=== PATIENT | male | born 1995 | race Caucasian/White ===

== ENCOUNTER 2019-04-06 09:16 | Emergency (ER) | payer BC ==
[~2019-04-06] VITALS: Ht 198.1 cm; Wt 105.0 kg
--- NOTE | 2019-04-06 09:34 | NUR ---
23 Y/O MALE BIB AMBULANCE WITH C/O ETOH. PER REPORT PT HAS BEEN ON A DRINKING BINGE FOR 6 DAYS. GILFRIEND AND PT WANT TO GET INTO A REHAB, BUT ALL REHABS TELL HIM HE NEEDS TO COME TO ER FIRST FOR MED CLEARNACE. PER REPORT LAST DRINK WAS THIS MORNING AND WAS VODKA. PT WAS AT [facility] A FEW DAYS AGO FOR SAME SITUATION, IVF AND VALIUM WAS GIVEN. NO RX WAS SENT HOME WITH PT. PER PT "I HAVEN'T EATEN IN 5 DAYS. I LIVE WITH MY GIRLFRIEND." PIV ESTABLISHED PRIOR TO ARRIVAL. PT CHANGED INTO GOWN. PLACED ON CONT PULSE OX,NIBP. PT DOESN'T WANT CONTRACT [place] AT THIS TIME.
--- NOTE | 2019-04-06 09:51 | NUR ---
SPOKE WITH DAISY AT [facility] REGARDING NEEDS IN ORDER TO MEDICALLY CLEAR PT. SHE STATED WHEN SHE SPOKE TO THE NURSE IT WAS OK TO SEND HIM OVER FOR AN ASSESSMENT. VSS WITH PT. NO OBVIOUS TREMORS, N/V. GIRLFRIEND BEDSIDE AND MADE AWARE OF POC.
[2019-04-06] MEDS ORDERED: ONDANSETRON 2MG/ML, 2ML ONE (09:54)
[2019-04-06] MEDS ORDERED: CHLORDIAZEPOXIDE 25 MG CAPSULE ONE (09:54)
--- NOTE | 2019-04-06 09:55 | NUR ---
RELAYED MESSAGE FROM SPEAKING TO [facility] TO DR. LEUNG./
[2019-04-06 09:57] VITALS: BP 122/77
[2019-04-06] MEDS ORDERED: ONDANSETRON ODT 4 MG PO ONE (10:00)
[2019-04-06] MEDS ORDERED: CHLORDIAZEPOXIDE 25 MG CAPSULE PO ONE (10:00)
[2019-04-06] MEDS ORDERED: ONDANSETRON ODT 4 MG ONE (10:05)
--- NOTE | 2019-04-06 11:23 | NUR ---
PT ABLE TO STAND AND TRANSFER WITH STEADY GAIT TO WHEELCHAIR. PER GIRLFRIEND "I'LL TAKE HIM TO [facility]." PT AND GF VERBALIZE UNDERSTANDING REGARDING POC. NADN. Patient/Caregiver given discharge instructions and they have confirmed that they understand the instructions. PT LEFT WITH ALL PERSONAL BELONGINGS.
--- NOTE | 2019-04-06 11:26 | NUR ---
PIV D/C WITH TIP INTACT. PRESSURE DRESSING APPLIED.
== END 2019-04-06 11:28 | disposition home or self-care (01) ==
LOC: ED 11:15
DX: F10.229 Alcohol dependence with intoxication, unspecified (principal); Y90.0 Blood alcohol level of less than 20 mg/100 ml
CPT/HCPCS: 99283; Q0162